=== PATIENT | female | born 1940 | race Caucasian/White ===

== ENCOUNTER 2021-08-26 17:44 | Emergency (ER) | payer OTHER, MEDICAID ==
[~2021-08-26] VITALS: Ht 149.9 cm; Wt 56.7 kg
[2021-08-26 17:52] VITALS: BP 157/95
--- NOTE | 2021-08-26 20:07 | NUR ---
rt ear irr with 250cc warm h2o. wax removed. pt states she feels much better and can hear alot better. pt tolerated procedure well with no verbal complaints. informed
== END 2021-08-26 20:57 | disposition home or self-care (01) ==
LOC: ER 17:46
DX: H61.21 Impacted cerumen, right ear (principal); J02.9 Acute pharyngitis, unspecified; H92.01 Otalgia, right ear; Z60.2 Problems related to living alone
CPT/HCPCS: 69209; 99281; 99282

== ENCOUNTER 2023-10-18 15:10 | Emergency (ER) | payer OTHER, MEDICAID ==
[~2023-10-18] VITALS: Ht 147.3 cm; Wt 72.7 kg
[2023-10-18 15:21] VITALS: TEMP 98.8
--- NOTE | 2023-10-18 17:59 | NUR ---
pt is in room in [facility] accompanied by family friend who is the pt PAULINEA, Ammy Agosto [phone]. pt has a hx of dementia that has worsened in the last year or so. pt has been getting more agitated lately per family friend. pt is living in an independent living facility but according to pt friend who received calls from the facility, that the pt is intruding on the other patients personal space, pt BB believes she is an employee and helping out the residence of the facility. apparently this is becoming a problem and the other people of the facility are not wanting to stay there anymore d/t this problem.
[2023-10-18 18:48] VITALS: BP 178/96; PULSE 98; RESP 18; O2SAT 96
== END 2023-10-18 18:50 | disposition home or self-care (01) ==
LOC: ER 15:11
DX: R41.3 Other amnesia (principal); Z60.2 Problems related to living alone
CPT/HCPCS: 99281; 99283